=== PATIENT | male | born 1960 | race Caucasian/White ===

== ENCOUNTER 2022-01-10 18:33 | Emergency (ER) | payer OTHER ==
[2022-01-10] MEDS ORDERED: Ketorolac Tromethamine 30 MG/ML VIAL ONE (23:00)
[2022-01-10] MEDS ORDERED: Morphine 4 MG/ML VIAL ONE (23:00)
== END 2022-01-11 00:23 | disposition home or self-care (01) ==
LOC: ERS 18:33
DX: G89.29 Other chronic pain (principal); M54.50 Low back pain, unspecified; I10 Essential (primary) hypertension
CPT/HCPCS: 96374; 96375; J1885; J2270